=== PATIENT | female | born 1950 | race Caucasian/White ===

== ENCOUNTER 2024-11-29 14:39 | Inpatient (IN) | payer OTHER, MEDICARE ==
[2024-11-29] MEDS ORDERED: NA CHLORIDE 0.9% 500 ML ONE ×4 (15:15→16:00)
[2024-11-29 15:34] LABS: Influenza A Ag Negative; Influenza B Ag Negative; SARS-CoV-2 Antigen Rapid Res Negative (Negative)
[2024-11-29 15:37] LABS: Absolute Eosinophils 0.2 K/uL (0-0.5); Absolute Lymphocytes (CBC) 1.6 K/uL (0.7-4.9); Absolute Monocytes 1.4 K/uL (0.1-1.3); Absolute Neutrophil 10.7 K/uL (1.8-8.0); Basophils % 0.2 % (0-1.3); Eosinophils % 1.4 % (0-4.4); Hematocrit 32.7 % (36.0-45.0); Hemoglobin 10.6 g/dL (12.0-15.0); Lymphocytes % 11.3 % (15.3-44.8); MCH 27.7 pg (27.0-35.0); MCHC 32.2 g/dL (32.0-36.0); MCV 85.8 fL (80-100); MPV 7.2 fL (7.6-11.3); Neutrophils % 77.1 % (41.7-73.7); Platelets 256 thou/uL (152-406); RBC Red Blood Cell Count 3.81 M/uL (3.86-4.86); Red Cell Distribution Width 14.9 % (12.1-15.2)
[2024-11-29 15:48] LABS: PT Prothrombin Time 12.4 SECONDS (10.0-13.0); PTT, Activated Partial Thromb 28.1 SECONDS (24.3-36.9); Protime INR 1.09
[2024-11-29 15:56] LABS: ALT/SGPT 36 U/L (13-56); AST/SGOT 35 U/L (15-37); Albumin 2.8 g/dL (3.4-5.0); Albumin/Globulin Ratio 0.7 (1.1-1.8); Alkaline Phosphatase 130 U/L (45-117); BUN Blood Urea Nitrogen 16 mg/dL (7-18); Bicarbonate 23 mEq/L (21-32); Bilirubin Total 0.5 mg/dL (0.2-1.0); Globulin 3.9 g/dL (2.3-3.5); Glomerular Filtration Rate 36 ml/min (=/>90); Glucose Level 97 mg/dL (74-106); Magnesium 1.9 mg/dL (1.6-2.4); Protein, Total 6.7 g/dL (6.4-8.2); Sodium Level 131 mEq/L (136-145); Troponin High Sensitivity 9.9 pg/mL (<58.9)
[2024-11-29 15:57] LABS: Bilirubin Direct < 0.2 mg/dL (0-0.2); Bilirubin Indirect, Calculated 0.3 mg/dL (0.2-0.8)
[2024-11-29] MEDS ORDERED: NOREPINEPHRINE BITARTRATE/D5W 4 MG/250 ML BAG IV ONE (16:23)
[2024-11-29] MEDS ORDERED: NA CHLORIDE 0.9% 250 ML ONE (16:41)
[2024-11-29] MEDS ORDERED: CALCIUM GLUCONATE 1 GM IVPB 1 GM/50 ML BAG IV ONE (16:41)
[2024-11-29] MEDS ORDERED: AZITHROMYCIN 500 MG INJ IVPB ONE (16:41)
[2024-11-29] MEDS ORDERED: CEFTRIAXONE 1000 MG/VIAL ONE (16:41)
--- NOTE | 2024-11-29 16:45 | RAD REPORT ---
EXAM: CT Head Brain Wo Cont HISTORY: possible syncope, AMS COMPARISON: None TECHNIQUE: Multiple contiguous axial images were obtained for a CT of the brain without contrast. Sag ittal and coronal reformats were performed. One or more of the following dose reduction techniques were used: Automated exposure control, adjus tment of the mA and kV according to patient size, and iterative reconstruction. Unless otherwise specified, incidental findings do not require dedicated imaging follow-up. FINDINGS: No evidence of hydrocephalus, intracranial hemorrhage, or extra-axial fluid collection. Moderate brain atrophy with moderate periventricular and deep white matter chronic hypodensities, no nspecific, but suggestive of microvascular ischemic changes present. The calvarium is intact. The visualized paranasal sinuses and mastoid air cells are essentially clear . IMPRESSION: No evidence of acute intracranial abnormality.
--- NOTE | 2024-11-29 17:12 | RAD REPORT ---
EXAMINATION: ONE VIEW CHEST XR CLINICAL INDICATION: Female, 73 years old.,possible syncope TECHNIQUE: Frontal chest projection is submitted. Examination is limited by patient positioning and t echnique. COMPARISON: No prior exam. FINDINGS: The lungs are diffusely hyperlucent but grossly clear apart from mild right costophrenic angle blunti ng which could relate to atelectasis or trace effusion. No pneumothorax or sizable effusion. The heart is normal in size. Mediastinal contours are unremarkable. IMPRESSION: Mild right costophrenic angle blunting which could relate to atelectasis or trace effusion. Backgroun d chronic changes suggestive of COPD.
[2024-11-29 17:37] LABS: Specific Gravity 1.013 (1.005-1.030); Sqamous Epithelial None Seen /HPF (None Seen); Urine Bacteria <20 /HPF (<20); Urine Bilirubin NEGATIVE (Negative); Urine Blood 1+ (Negative); Urine Clarity Clear (Clear); Urine Color Yellow (Yellow); Urine Culture Reflex Order NOT NEEDED; Urine Glucose NEGATIVE (Negative); Urine Ketones NEGATIVE (Negative); Urine Microscopic Reflex YN ORDER UMIC; Urine Mucus Slight /HPF (None Seen); Urine Nitrite NEGATIVE (Negative); Urine Protein TRACE (Negative); Urine RBC <5 /HPF (None Seen); Urine Urobilinogen Normal (Normal); Urine WBC <5 /HPF (<5); Urine Yeast (Budding) Trace /HPF (None Seen)
--- NOTE | 2024-11-29 17:40 | RAD REPORT ---
EXAMINATION: US Abdomen Exam Limited CLINICAL HISTORY: [facility] Y fever, elevated alk phos Bed Name: 4 COMPARISON: None. TECHNIQUE: Limited upper abdominal grayscale and color flow sonographic images. FINDINGS: Gallbladder: Small gallstone near the neck. No significant wall thickening or pericholecystic fluid. Reportedly negative sonographic Church's sign. Bile ducts: No intrahepatic or extrahepatic biliary dilatation. Common bile duct measures 5 mm. Liver: Visualized portions of the liver demonstrate normal echogenicity with no suspicious findings. Fluid: No ascites. IMPRESSION: Gallstone near the neck. No sonographic findings to suggest acute cholecystitis.
--- NOTE | 2024-11-29 17:51 | ER ---
Nurse's Notes [facility] Name: Francisca Lemus Age: 73 yrs Sex: Female : 1950 Arrival Date: 11/29/2024 Time: 14:39 Bed 4 Private MD: Diagnosis: Hypotension, unspecified;Fever, unspecified;Suspected influenza Presentation: 11/29 15:37 Chief complaint: EMS states: they were toned out for generalized weakness and flu like kc6 symptoms that started today with subjective unwitnessed syncopal episode. unknown LOC. pt reports being 1mo s/p neck surgery. Coronavirus screen: At this time, the client does not indicate any symptoms associated with coronavirus-19. Ebola Screen: No symptoms or risks identified at this time. Initial Sepsis Screen: Does the patient meet any 2 criteria? Mean Arterial Pressure (MAP) < 65. Does the patient have a suspected source of infection? No. Patient's initial sepsis screen is negative. Risk Assessment: Do you want to hurt yourself or someone else? Patient reports no desire to harm self or others. Onset of symptoms was November 29, 2024. Care prior to arrival: Medication(s) given: Lactated Ringers 500 mL IV initiated. 20 GA, in the left forearm. 15:37 Method Of Arrival: EMS: [facility] kc6 15:37 Acuity: SACHIN 2 kc6 Historical: - Allergies: 15:35 No Known Allergies; hb - Home Meds: 15:35 TYLENOL [Active]; albuterol sulfate 90 mcg/actuation Inhl HFA Aerosol Inhaler 2 hb inhalations every 4 hours [Active]; Lipitor 10 mg Oral tablet every day at bedtime [Active]; budesonide 3 mg oral Capsule, Delayed and Extended Release 3 caps daily [Active]; cholecalciferol (vitamin D3) 25 mcg (1,000 unit) oral capsule daily [Active]; Lotrimin Topical daily [Active]; doxylamine succinate 25 mg oral tablet every day at bedtime [Active]; Estraderm TD daily [Active]; gabapentin 600 mg oral tablet 2 times per day [Active]; Mucinex 1,200 mg oral Tablet,Extended Release 12 hr daily [Active]; Swifton 5 MG Oral as needed [Active]; Singulair 10 mg Oral tablet every day at bedtime [Active]; Oncovite oral tablet daily [Active]; Corgard 20 MG Oral 2 times per day [Active]; Naproxen Oral [Active]; nortriptyline 10 mg Oral capsule 2 times per day [Active]; nystatin 100,000 unit/mL Oral suspension 5 mL 4 times per day [Active]; omeprazole 20 mg Oral capsule,delayed release (e.c.) daily [Active]; Imitrex 100 mg Oral tablet as directed on dose pack [Active]; Anoro Ellipta 62.5-25 mcg/actuation inhalation Blister, With Inhalation Device 1 inhalation daily [Active]; valsartan 80 mg oral tablet daily [Active]; - PMHx: 15:50 Hypercholesterolemia; Gastroesophageal reflux disease; Hypertensive disorder; Asthma; kc6 - Immunization history:: Adult Immunizations up to date. - Infectious Disease History:: Denies. - Family history:: not pertinent. - Social history:: Smoking status: Patient denies any tobacco usage or history of. Screenin:40 [facility] ED Fall Risk Assessment (Adult) History of falling in the last 3 months, kc6 including since admission Yes- physiologic fall (2 pts) Confusion or Disorientation No (0 pts) Intoxicated or Sedated No (0 pts) Impaired Gait No (0 pts) Mobility Assist Device Used No (0 pt) Altered Elimination No (0 pt) Score/Fall Risk Level 0 - 2 = Low Risk Oriented to surroundings, Maintained a safe environment, Educated pt \T\ family on fall prevention, incl call for assistance when getting out of bed. Abuse screen: Denies threats or abuse. Denies injuries from another. Nutritional screening: No deficits noted. Tuberculosis screening: No symptoms or risk factors identified. Assessment: 15:48 General: Appears in no apparent distress. comfortable, slender, well groomed, Behavior kc6 is calm, cooperative, appropriate for age, drowsy. Pain: Denies pain. Neuro: Level of Consciousness is awake, obeys commands, lethargic, Oriented to person, place, time, situation, Appropriate for age Reports dizziness, a syncopal episode weakness. Cardiovascular: Denies chest pain, shortness of breath, Heart tones S1 S2 present Capillary refill < 3 seconds Rhythm is sinus bradycardia with 1st degree heart block. Respiratory: Reports cough that is non-productive, Airway is patent Trachea midline Respiratory effort is even, unlabored, Respiratory pattern is regular, symmetrical. GI: No signs and/or symptoms were reported involving the gastrointestinal system. Last BM was November 29, 2024. Bowel sounds present X 4 quads. Abd is soft and non tender X 4 quads. Patient currently denies abdominal pain, diarrhea, nausea, vomiting. : No signs and/or symptoms were reported regarding the genitourinary system. EENT: Reports pain when swallowing. Derm: No signs and/or symptoms reported regarding the dermatologic system. Skin is intact, is fragile, is thin, with poor turgor Skin is dry, Skin is pale, Skin temperature is cool. Musculoskeletal: No signs and/or symptoms reported regarding the musculoskeletal system. Circulation, motion, and sensation intact. Range of motion: intact in all extremities. 16:48 Reassessment: Patient appears in no apparent distress at this time. No changes from kc6 previously documented assessment. Patient and/or family updated on plan of care and expected duration. Pain level reassessed. Patient is alert, oriented x 3, equal unlabored respirations, skin warm/dry/pink. 17:48 Reassessment: Patient appears in no apparent distress at this time. No changes from kc6 previously documented assessment. Patient and/or family updated on plan of care and expected duration. Pain level reassessed. Patient is alert, oriented x 3, equal unlabored respirations, skin warm/dry/pink. 18:45 Reassessment: Patient appears in no apparent distress at this time. Patient and/or hb family updated on plan of care and expected duration. Pain level reassessed. Patient is alert, oriented x 3, equal unlabored respirations, skin warm/dry/pink. 19:10 General: Appears comfortable, Behavior is calm, cooperative. Pain: Denies pain. Neuro: ha1 Level of Consciousness is awake, alert, obeys commands, forgetful . Oriented to person, place, time, situation. Cardiovascular: Capillary refill < 3 seconds Patient's skin is warm and dry. Respiratory: Airway is patent Respiratory effort is even, unlabored, Respiratory pattern is regular, symmetrical. GI: No signs and/or symptoms were reported involving the gastrointestinal system. Abdomen is round non-distended, Bowel sounds present X 4 quads. Abd is soft and non tender X 4 quads. Patient currently denies abdominal pain. : No signs and/or symptoms were reported regarding the genitourinary system. Derm: Skin is intact, is fragile, is thin, with poor turgor Skin is pale. Musculoskeletal: Circulation, motion, and sensation intact. 19:30 Reassessment: attempted to give report. ha1 20:00 Reassessment: attempted to give report. ha1 20:00 Reassessment: Patient and/or family updated on plan of care and expected duration. Pain ha1 level reassessed. Patient is alert, oriented x 3, equal unlabored respirations, skin warm/dry/pink. Patient states feeling better. Patient states symptoms have improved. 20:09 Reassessment: Patient and/or family updated on plan of care and expected duration. Pain ha1 level reassessed. 21:10 Reassessment: Patient and/or family updated on plan of care and expected duration. Pain ha1 level reassessed. Patient is alert, oriented x 3, equal unlabored respirations, skin warm/dry/pink. Patient denies pain at this time. Patient states feeling better. Patient states symptoms have improved. 21:16 Reassessment: report given to REY Patel. ha1 Vital Signs: 15:37 BP 71 / 39; Pulse 53; Resp 16 S; Pulse Ox 100% on R/A; kc6 15:41 BP 73 / 47; Weight 53.52 kg (R); Height 5 ft. 0 in. (R); kc6 15:51 BP 82 / 36; kc6 16:37 BP 89 / 61; Pulse 57; Resp 18 S; Pulse Ox 99% on R/A; kc6 16:38 BP 100 / 50; kc6 16:45 BP 95 / 58; Pulse 58; hb 16:45 BP 99 / 65; rn 16:52 BP 95 / 58; Pulse 60; rn 17:07 BP 113 / 67; Pulse 60; Resp 15 S; Pulse Ox 100% on R/A; kc6 17:14 BP 116 / 54; rn 17:15 BP 127 / 69; Pulse 62; hb 17:30 BP 115 / 49; Pulse 60; hb 17:45 BP 116 / 53; Pulse 62; hb 18:00 BP 112 / 60; Pulse 61; Resp 15; Pulse Ox 98% on R/A; hb 18:02 BP 112 / 60; Pulse 66; Resp 17 S; Pulse Ox 100% on R/A; kc6 18:15 BP 124 / 57; Pulse 61; hb 18:30 BP 121 / 55; Pulse 57; hb 18:52 BP 112 / 61; Pulse 64; Resp 14; Pulse Ox 100% on R/A; hb 19:16 BP 127 / 64; Pulse 64; Resp 17 S; Pulse Ox 97% on R/A; ha1 19:30 BP 127 / 81; Pulse 67; Resp 17 S; Pulse Ox 100% on R/A; ha1 19:45 BP 125 / 54; Pulse 66; Resp 17 S; Pulse Ox 97% on R/A; ha1 20:00 BP 124 / 56; Pulse 67; Resp 17 S; Pulse Ox 99% on R/A; ha1 20:15 BP 127 / 81; Pulse 67; Resp 17 S; Pulse Ox 99% on R/A; ha1 20:30 BP 133 / 57; Pulse 67; Resp 17 S; Pulse Ox 98% on R/A; ha1 20:45 BP 139 / 74; Pulse 66; Resp 18 S; Temp 98.7(O); Pulse Ox 100% on R/A; ha1 21:00 BP 127 / 61; Pulse 69; Resp 17 S; Pulse Ox 100% on R/A; ha1 21:15 BP 132 / 56; Pulse 67; Resp 17 S; Pulse Ox 100% on R/A; ha1 21:30 BP 124 / 71; Pulse 68; Resp 17 S; Pulse Ox 99% on R/A; ha1 21:45 BP 124 / 74; Pulse 67; Resp 18 S; Pulse Ox 100% on R/A; ha1 15:41 Body Mass Index 23.05 (53.52 kg, 152.4 cm) [facility] ED Course: 14:49 Patient arrived in ED. bd 14:49 Yo Stubbs MD is Attending Physician. rn 15:00 CT Head Brain wo Cont In Process Unspecified. EDMS 15:37 Deb Sanchez, REY is Primary Nurse. kc6 15:39 Triage completed. kc6 15:39 Arm band placed on. kc6 15:40 Patient has correct armband on for positive identification. Placed in gown. Bed in low kc6 position. Call light in reach. Side rails up X2. Adult w/ patient. information technology coordinator on. Pulse ox on. NIBP on. Door closed. Noise minimized. Lights dimmed. Warm blanket given. Pillow given. Verbal reassurance given. 15:40 Maintain EMS IV. Dressing intact. Good blood return noted. Site clean \T\ dry. Gauge \T\ mis 6 site: 20G LFA. Flushed with 10 mL NS. Inserted saline lock: 22 gauge in right antecubital area, using aseptic technique. Blood collected. Flushed with 10 mL NS. Patient maintains SpO2 saturation greater than 95% on room air. 15:44 Chest Single View XRAY In Process Unspecified. EDMS 16:13 Repositioned patient. Cleaned of incontinence. Linen changed. kc6 16:21 Assisted provider with central line placement. Set up central line tray. Triple lumen kc6 line placed in right femoral. Line placed by Yo Stubbs MD Placement verified by blood return, Dressed with 4X4s, Tape, Tegaderm, Blood was collected. Patient tolerated well. Before procedure, did Practitioner(s) obtain informed consent? Yes. Patient \T\ family education about procedure, CLABSI prevention and S/S of infection? Yes. Time-out/Briefing performed prior to start of procedure? Yes. Was handwashing/sanitizing done immediately prior to procedure? Yes. Was patient positioned to in a way to prevent air embolism? Yes. Was procedure site sterilized? Yes, with chlorhexidine. Was the site allowed to dry? Yes. Was local anesthetic and/or sedation utilized? Yes. During the procedure, did the Practitioner(s) maintain a sterile field? Yes. Were unused ports clamped during insertion? Yes. Was a 2nd qualified MD obtained after 3 unsuccessful insertion attempts? No. Was blood aspirated from each lumen? Yes. After the procedure, did the Practitioner(s) clean the site and apply a sterile dressing? Yes. 17:03 US Abdomen Limited In Process Unspecified. EDMS 17:25 Holden cath inserted, using sterile technique, 16 Fr., by ut, balloon inflated, to kc6 gravity drainage, clamped. urine specimen collected. returned clear yellow urine. Patient tolerated well. 17:49 Sundeep Bates MD is Hospitalizing Provider. rn 21:45 Provided Education on: need for admit . ha1 21:45 Patient admitted, IV remains in place. ha1 Administered Medications: 15:16 Not Given (Duplicate Order): ns 0.9% 500 ml 500 ml IV at 1 bolus once; to be given as a rn bolus over 30 minutes 15:30 Drug: NS 0.9% IV 1000 ml IV at 1000 ml once; to be given as a bolus over 60 minutes kc6 Route: IV; Rate: 1000 ml; Site: left forearm; 17:07 Follow up: Response: No adverse reaction; Blood pressure is unchanged; IV Status: kc6 Completed infusion; IV Intake: 1000ml 15:52 Drug: NS 0.9% IV 500 ml 500 ml IV at 1 bolus once; to be given as a bolus over 30 kc6 minutes Volume: 500 ml; Route: IV; Rate: 1 bolus; Site: left forearm; 17:07 Follow up: Response: No adverse reaction; Blood pressure is unchanged; IV Status: kc6 Completed infusion; IV Intake: 500ml 15:53 Drug: NS 0.9% IV (30 ml/kg) 30 ml/kg IV at bolus once; Sepsis Protocol; to be given as kc6 a bolus, subtract 1L given Route: IV; Rate: bolus; Site: left forearm; 17:08 Follow up: Response: No adverse reaction; Blood pressure is unchanged; IV Status: kc6 Completed infusion; IV Intake: 1500ml 16:34 Drug: Norepinephrine IV 0.1 mcg/kg/min IV at calculated rate Per protocol; (Standard kc6 concentration 4 mg / 250 mL D5W); Recommended max rate 3 mcg/kg/min; Titrate 0.05 mcg/kg/min as often as every 5 minutes to achieve goal (see titration policy); Goal parameter MAP greater than 65 mmHg. Route: IV; Rate: calculated rate; Site: right femoral; 18:56 Follow up: Response: No adverse reaction; Blood pressure is elevated; Rate change 5 kc6 mcg/min; IV Status: Infusion continued upon admission; IV Intake: 250ml 16:55 Drug: Rocephin IV 1 grams IV at calculated rate once; Given slow IV push per pharmacy kc6 instructions Route: IV; Rate: calculated rate; Site: left forearm; 17:08 Follow up: Response: No adverse reaction; IV Status: Completed infusion; IV Intake: [id number] 16:55 Drug: Zithromax IVPB 500 mg IVPB once over 1 hrs; mix in 250 mL NS Route: IVPB; Infused kc6 Over: 1 hrs; Site: right femoral; 18:01 Follow up: Response: No adverse reaction; IV Status: Completed infusion; IV Intake: kc6 250ml 16:55 Drug: Calcium Gluconate IVPB 1 grams IVPB once over 60 mins; (mix in NS 100 mL) Route: kc6 IVPB; Infused Over: 60 mins; Site: right femoral; 18:01 Follow up: Response: No adverse reaction; IV Status: Completed infusion; IV Intake: kc6 100ml 18:11 Drug: Oseltamivir PO 75 mg PO once Route: PO; kc6 18:56 Follow up: Response: No adverse reaction kc6 Medication: 19:44 VIS not applicable for this client. ha1 Intake: 17:07 IV: 1000ml; Total: 1000ml. kc6 17:07 IV: 500ml; Total: 1500ml. kc6 17:08 IV: 1500ml; Total: 3000ml. kc6 17:08 IV: 10ml; Total: 3010ml. kc6 18:01 IV: 100ml; Total: 3110ml. kc6 18:01 IV: 250ml; Total: 3360ml. kc6 18:56 IV: 250ml; Total: 3610ml. kc6 Outcome: 17:50 Decision to Hospitalize by Provider. rn 21:45 Admitted to ICU accompanied by nurse, via stretcher, room 7, with chart, [facility] 21:45 Condition: stable 21:45 Instructed on the need for admit, Demonstrated understanding of instructions, 22:16 Patient left the ED. ha1 Signatures: Dispatcher [employer] EDMS April Mejias Roman, MD MD rn Baxter, Heather, RN RN hb Ayala, Heidy, RN RN [facility] Deb Sanchez RN RN kc6 Corrections: (The following items were deleted from the chart) 15:40 15:39 PMHx: Chronic obstructive lung disease; kc6 kc6 15:40 15:39 PMHx: Gastroesophageal reflux disease; kc6 kc6 15:40 15:39 PMHx: Hypertensive disorder; kc6 kc6 15:41 15:37 Chief complaint: EMS states: they were toned out for generalized weakness and flu kc6 like symptoms that started today. pt reports being 1mo s/p neck surgery. kc6 15:52 15:41 BP 73 / 47; kc6 kc6
--- NOTE | 2024-11-29 17:51 | EDPHYS ---
Physician Documentation [facility] Name: Francisca Lemus Age: 73 yrs Sex: Female : 1950 Arrival Date: 11/29/2024 Time: 14:39 Bed 4 Private MD: ED Physician Yo Stubbs HPI: 11/29 15:07 This 73 yrs old Female presents to ER via Unassigned with complaints of not feeling rn well. 15:07 EMS reports called to patient's residence for not feeling well and flulike symptoms. rn Apparently multiple contacts lately with flulike symptoms and other people for patient. Patient reports 2 days of feeling generalized weakness and malaise, cough. Patient was found sitting on toilet, large bowel movement found in toilet that was nonbloody and not diarrhea. Patient was minimally responsive but awake. No trauma or fall. Unsure if patient had a syncopal episode or not. Patient had taken her hydrocodone and had exhibited slow breathing but not slow enough to warrant Narcan per EMS. Patient more alert already since picking her up without intervention other than fluids.. Onset: The symptoms/episode began/occurred yesterday. Severity of symptoms: At their worst the symptoms were moderate in the emergency department the symptoms have improved. Historical: - Allergies: 15:35 No Known Allergies; hb - Home Meds: 15:35 TYLENOL [Active]; albuterol sulfate 90 mcg/actuation Inhl HFA Aerosol Inhaler 2 hb inhalations every 4 hours [Active]; Lipitor 10 mg Oral tablet every day at bedtime [Active]; budesonide 3 mg oral Capsule, Delayed and Extended Release 3 caps daily [Active]; cholecalciferol (vitamin D3) 25 mcg (1,000 unit) oral capsule daily [Active]; Lotrimin Topical daily [Active]; doxylamine succinate 25 mg oral tablet every day at bedtime [Active]; Estraderm TD daily [Active]; gabapentin 600 mg oral tablet 2 times per day [Active]; Mucinex 1,200 mg oral Tablet,Extended Release 12 hr daily [Active]; [place] 5 MG Oral as needed [Active]; Singulair 10 mg Oral tablet every day at bedtime [Active]; Oncovite oral tablet daily [Active]; Corgard 20 MG Oral 2 times per day [Active]; Naproxen Oral [Active]; nortriptyline 10 mg Oral capsule 2 times per day [Active]; nystatin 100,000 unit/mL Oral suspension 5 mL 4 times per day [Active]; omeprazole 20 mg Oral capsule,delayed release (e.c.) daily [Active]; Imitrex 100 mg Oral tablet as directed on dose pack [Active]; Anoro Ellipta 62.5-25 mcg/actuation inhalation Blister, With Inhalation Device 1 inhalation daily [Active]; valsartan 80 mg oral tablet daily [Active]; - PMHx: 15:50 Hypercholesterolemia; Gastroesophageal reflux disease; Hypertensive disorder; Asthma; kc6 - Immunization history:: Adult Immunizations up to date. - Infectious Disease History:: Denies. - Family history:: not pertinent. - Social history:: Smoking status: Patient denies any tobacco usage or history of. ROS: 15:07 Constitutional: Negative for fever, chills, and weight loss, Neck: Negative for injury, rn pain, and swelling, Cardiovascular: Negative for chest pain, palpitations, and edema, Respiratory: Positive for cough, negative for shortness of breath Abdomen/GI: Positive for decreased appetite but no focal abdominal pain. No vomiting or diarrhea Back: Negative for injury and pain, : Negative for injury, bleeding, discharge, and swelling, MS/Extremity: Negative for injury and deformity, Skin: Negative for injury, rash, and discoloration, Neuro: Positive for generalized weakness Exam: 15:07 Constitutional: This is a well developed, well nourished patient who is somnolent but rn awakens to voice and tactile stimulation Head/Face: Normocephalic, atraumatic. ENT: Dry mucous membranes Cardiovascular: Bradycardic, regular. No pulse deficits Respiratory: No increased work of breathing, no retractions or nasal flaring. Abdomen/GI: Soft, non-tender, with normal bowel sounds. No distension or tympany. No guarding or rebound. No evidence of tenderness throughout. MS/ Extremity: Pulses equal, no cyanosis. Neurovascular intact. Full, normal range of motion. Equal circumference. Neuro: Somnolent but awakens to voice and able to hold entire conversation, GCS 15, oriented to person, place, and situation. Cranial nerves II-XII grossly intact. Motor strength 4/5 in all extremities. Sensory grossly intact. 15:56 ECG was reviewed by the Attending Physician. rn Vital Signs: 15:37 BP 71 / 39; Pulse 53; Resp 16 S; Pulse Ox 100% on R/A; kc6 15:41 BP 73 / 47; Weight 53.52 kg (R); Height 5 ft. 0 in. (R); kc6 15:51 BP 82 / 36; kc6 16:37 BP 89 / 61; Pulse 57; Resp 18 S; Pulse Ox 99% on R/A; kc6 16:38 BP 100 / 50; kc6 16:45 BP 95 / 58; Pulse 58; hb 16:45 BP 99 / 65; rn 16:52 BP 95 / 58; Pulse 60; rn 17:07 BP 113 / 67; Pulse 60; Resp 15 S; Pulse Ox 100% on R/A; kc6 17:14 BP 116 / 54; rn 17:15 BP 127 / 69; Pulse 62; hb 17:30 BP 115 / 49; Pulse 60; hb 17:45 BP 116 / 53; Pulse 62; hb 18:00 BP 112 / 60; Pulse 61; Resp 15; Pulse Ox 98% on R/A; hb 18:02 BP 112 / 60; Pulse 66; Resp 17 S; Pulse Ox 100% on R/A; kc6 18:15 BP 124 / 57; Pulse 61; hb 18:30 BP 121 / 55; Pulse 57; hb 18:52 BP 112 / 61; Pulse 64; Resp 14; Pulse Ox 100% on R/A; hb 19:16 BP 127 / 64; Pulse 64; Resp 17 S; Pulse Ox 97% on R/A; ha1 19:30 BP 127 / 81; Pulse 67; Resp 17 S; Pulse Ox 100% on R/A; ha1 19:45 BP 125 / 54; Pulse 66; Resp 17 S; Pulse Ox 97% on R/A; ha1 20:00 BP 124 / 56; Pulse 67; Resp 17 S; Pulse Ox 99% on R/A; ha1 20:15 BP 127 / 81; Pulse 67; Resp 17 S; Pulse Ox 99% on R/A; ha1 20:30 BP 133 / 57; Pulse 67; Resp 17 S; Pulse Ox 98% on R/A; ha1 20:45 BP 139 / 74; Pulse 66; Resp 18 S; Temp 98.7(O); Pulse Ox 100% on R/A; ha1 21:00 BP 127 / 61; Pulse 69; Resp 17 S; Pulse Ox 100% on R/A; ha1 21:15 BP 132 / 56; Pulse 67; Resp 17 S; Pulse Ox 100% on R/A; ha1 21:30 BP 124 / 71; Pulse 68; Resp 17 S; Pulse Ox 99% on R/A; ha1 21:45 BP 124 / 74; Pulse 67; Resp 18 S; Pulse Ox 100% on R/A; ha1 15:41 Body Mass Index 23.05 (53.52 kg, 152.4 cm) kc6 Procedures: 16:32 Central Line: the site was prepped with Betadine, in sterile fashion, a triple lumen rn catheter was inserted, in the right femoral vein, in 1 attempts. placement was verified, by blood return, the site was dressed with Tegaderm, using sterile technique, the patient tolerated the procedure, well. MDM: 14:49 Medical Screening Exam initiated rn 16:26 ED course: Patient with persistent hypotension despite 30 mL/kg bolus. No source of rn infection identified at this time. Central line placed and Levophed started as a pressor for hypotension. Sepsis reevaluation complete.. 16:53 ED course: Blood pressure has improved on Levophed, MAP now 68. Sepsis reevaluation rn complete.. 17:48 Differential Diagnosis altered mental status, sepsis, flu. Data reviewed: vital signs, rn nurses notes, lab test result(s), radiologic studies, plain films, ultrasound, and as a result, I will admit patient. Consideration of Admission/Observation Patient was admitted/placed on observation. Escalation of care including admission/observation considered. Care significantly affected by the following chronic conditions: Hypertension, Chronic Obstructive Pulmonary Disease. Counseling: I had a detailed discussion with the patient and/or guardian regarding the historical points, exam findings, and any diagnostic results supporting the discharge/admit diagnosis, lab results, radiology results, the need for further work-up and treatment in the hospital. Response to treatment: the patient's symptoms have markedly improved after treatment, and as a result, I will admit patient. ED course: Family member here states multiple sick contacts, her tested positive for flu a this weekend and they have been traveling with patient in close proximity. I will treat as suspected influenza with Tamiflu and continue antibiotics for now. Blood pressure currently 116/54 and feels much better.. 11/29 14:50 Order name: COVID-19 Ag + Flu A+B Ag; Complete Time: 16:27 rn 11/29 14:50 Order name: Basic Metabolic Panel; Complete Time: 16:27 rn 11/29 14:50 Order name: CBC with Diff; Complete Time: 16:27 rn 11/29 14:50 Order name: Hepatic Function; Complete Time: 16:27 rn 11/29 14:50 Order name: Magnesium; Complete Time: 16:27 rn 11/29 14:50 Order name: Protime (+inr); Complete Time: 16:27 rn 11/29 14:50 Order name: Ptt, Activated; Complete Time: 16:27 rn 11/29 14:50 Order name: Troponin High Sensitivity; Complete Time: 16:27 rn 11/29 14:50 Order name: Urinalysis w/ reflexes; Complete Time: 17:38 rn 11/29 15:15 Order name: Blood Culture Adult (2) rn 11/29 15:15 Order name: Lactate w/ 2H reflex if indic.; Complete Time: 16:27 rn 11/29 18:38 Order name: Urinalysis w/ reflexes EDMS 11/29 18:40 Order name: Urinalysis w/ reflexes EDMS 11/29 18:40 Order name: CBC with Automated Diff EDMS 11/29 18:40 Order name: CBC with Automated Diff EDMS 11/29 18:40 Order name: Comprehensive Metabolic Panel EDMS 11/29 18:40 Order name: Comprehensive Metabolic Panel EDMS 11/29 18:40 Order name: Magnesium EDMS 11/29 18:40 Order name: Magnesium EDMS 11/29 18:40 Order name: Phosphorus EDMS 11/29 18:40 Order name: Phosphorus EDMS 11/29 14:50 Order name: CT Head Brain wo Cont; Complete Time: 16:52 rn 11/29 14:50 Order name: Chest Single View XRAY; Complete Time: 17:29 rn 11/29 16:41 Order name: US Abdomen Limited; Complete Time: 17:41 rn 11/29 14:50 Order name: Cardiac monitoring; Complete Time: 15:14 rn 11/29 14:50 Order name: EKG - Nurse/Tech; Complete Time: 15:31 rn 11/29 14:50 Order name: IV Saline Lock; Complete Time: 15: rn 11/29 14:50 Order name: Labs collected and sent; Complete Time: 15: rn 11/29 14:50 Order name: NPO; Complete Time: 15: rn 11/29 14:50 Order name: O2 Per Protocol; Complete Time: 15: rn 11/29 14:50 Order name: O2 Sat Monitoring; Complete Time: 15: rn 11/29 15:15 Order name: Accucheck; Complete Time: 15: rn 11/29 15:15 Order name: IV Saline Lock - Large Bore; Complete Time: 15: rn 11/29 15:15 Order name: Vital Signs; Complete Time: 15: rn EC:56 Rate is 50 beats/min. Rhythm is regular. AR interval is prolonged. QRS interval is rn normal. No Q waves. T waves are Normal. No ST changes noted. Clinical impression: Sinus bradycardia. Interpreted by me. Reviewed by me. Administered Medications: 15:16 Not Given (Duplicate Order): ns 0.9% 500 ml 500 ml IV at 1 bolus once; to be given as a rn bolus over 30 minutes 15:30 Drug: NS 0.9% IV 1000 ml IV at 1000 ml once; to be given as a bolus over 60 minutes kc6 Route: IV; Rate: 1000 ml; Site: left forearm; 17:07 Follow up: Response: No adverse reaction; Blood pressure is unchanged; IV Status: kc6 Completed infusion; IV Intake: 1000ml 15:52 Drug: NS 0.9% IV 500 ml 500 ml IV at 1 bolus once; to be given as a bolus over 30 kc6 minutes Volume: 500 ml; Route: IV; Rate: 1 bolus; Site: left forearm; 17:07 Follow up: Response: No adverse reaction; Blood pressure is unchanged; IV Status: kc6 Completed infusion; IV Intake: 500ml 15:53 Drug: NS 0.9% IV (30 ml/kg) 30 ml/kg IV at bolus once; Sepsis Protocol; to be given as kc6 a bolus, subtract 1L given Route: IV; Rate: bolus; Site: left forearm; 17:08 Follow up: Response: No adverse reaction; Blood pressure is unchanged; IV Status: kc6 Completed infusion; IV Intake: 1500ml 16:34 Drug: Norepinephrine IV 0.1 mcg/kg/min IV at calculated rate Per protocol; (Standard kc6 concentration 4 mg / 250 mL D5W); Recommended max rate 3 mcg/kg/min; Titrate 0.05 mcg/kg/min as often as every 5 minutes to achieve goal (see titration policy); Goal parameter MAP greater than 65 mmHg. Route: IV; Rate: calculated rate; Site: right femoral; 18:56 Follow up: Response: No adverse reaction; Blood pressure is elevated; Rate change 5 kc6 mcg/min; IV Status: Infusion continued upon admission; IV Intake: 250ml 16:55 Drug: Rocephin IV 1 grams IV at calculated rate once; Given slow IV push per pharmacy kc6 instructions Route: IV; Rate: calculated rate; Site: left forearm; 17:08 Follow up: Response: No adverse reaction; IV Status: Completed infusion; IV Intake: [id number] 16:55 Drug: Zithromax IVPB 500 mg IVPB once over 1 hrs; mix in 250 mL NS Route: IVPB; Infused kc6 Over: 1 hrs; Site: right femoral; 18:01 Follow up: Response: No adverse reaction; IV Status: Completed infusion; IV Intake: kc6 250ml 16:55 Drug: Calcium Gluconate IVPB 1 grams IVPB once over 60 mins; (mix in NS 100 mL) Route: kc6 IVPB; Infused Over: 60 mins; Site: right femoral; 18:01 Follow up: Response: No adverse reaction; IV Status: Completed infusion; IV Intake: kc6 100ml 18:11 Drug: Oseltamivir PO 75 mg PO once Route: PO; kc6 18:56 Follow up: Response: No adverse reaction kc6 Disposition Summary: 11/29/24 17:50 Hospitalization Ordered Notes: Hospitalization Status: Inpatient Admission rn Provider: Sundeep Bates rn Location: Intensive Care Unit rn Condition: Fair rn Problem: new rn Symptoms: have improved rn Bed/Room Type: Standard rn Room Assignment: 7-(11/29/24 19:23) cg Diagnosis - Hypotension, unspecified rn - Fever, unspecified rn - Suspected influenza rn Forms: - Medication Reconciliation Form rn - SBAR form rn - Leadership Thank You Letter rn pacu time excluding procedures: 17:49 Critical care time: Bedside Care: 35 minutes. Total time: 35 minutes rn Signatures: Dispatcher [facility] EDMS Yo Stubbs MD MD rn Garcia, Cindy, RN RN cg Alvina Nunn, Deb Galdamez RN RN RN kc6 Corrections: (The following items were deleted from the chart) 14:51 14:51 COVID-19 Ag + Flu A+B Ag+I.LAB.BRZ ordered. EDMS EDMS 14:51 14:51 BASIC METABOLIC PANEL+C.LAB.BRZ ordered. EDMS EDMS 14:51 14:51 CBC+H.LAB.BRZ ordered. EDMS EDMS 14:51 14:51 HEPATIC FUNCTION+C.LAB.BRZ ordered. EDMS EDMS 14:51 14:51 MAGNESIUM+C.LAB.BRZ ordered. EDMS EDMS 14:51 14:51 PROTIME (+INR)+COAG.LAB.BRZ ordered. EDMS EDMS 14:51 14:51 PTT, ACTIVATED+COAG.LAB.BRZ ordered. EDMS EDMS 14:51 14:51 Troponin High Sensitivity+C.LAB.BRZ ordered. EDMS EDMS 14:51 14:51 Urinalysis+U.LAB.BRZ ordered. EDMS EDMS 14:51 14:51 Head Brain Wo Cont+CT.RAD.BRZ ordered. EDMS EDMS 14:51 14:51 Chest Single View+RAD.RAD.BRZ ordered. EDMS EDMS 15:40 15:39 PMHx: Chronic obstructive lung disease; kc6 kc6 15:40 15:39 PMHx: Gastroesophageal reflux disease; kc6 kc6 15:40 15:39 PMHx: Hypertensive disorder; kc6 kc6 16:41 16:41 Abdomen Limited+US.RAD.BRZ ordered. EDMS EDMS 19:23 17:50 rn cg
[2024-11-29] MEDS ORDERED: OSELTAMIVIR 75 MG CAP PO ONE (18:04)
--- NOTE | 2024-11-29 18:34 | P.HP ---
Certification for Inpatient Patient admitted to: Inpatient With expected LOS: >2 Midnights Practitioner: I am a practitioner with admitting privileges, knowledge of patient current condition, hospital course, and medical plan of care. Services: Services provided to patient in accordance with Admission requirements found in Title 42 Section 412.3 of the Code of Federal Regulations Patient History Date of Service: 11/29/24 Reason for admission: generalized weakness History of Present Illness: 73 yrs old Female with past medical history of hypertension, hyperlipidemia, GERD, Asthma who came to ER with complaints of not feeling well. She has been having not feeling well and flulike symptoms. Patient is a historian hence most of the history is obtained from chart review and also talking to the ER physician and family member at the bedside . Apparently multiple contacts lately with flulike symptoms and other people for patient. Patient reports 2 days of feeling generalized weakness and malaise, cough.Patient was minimally responsive but awake. No trauma or fall. Patient was assessed in the ER and was admitted for further management . . Lidia ent was found to be hypotensive and was started on Levophed and was admitted to the ICU Home medications list reviewed: Yes - Past Medical/Surgical History Past Medical History: Reviewed- Non-Contributory -: Hypertension, hyperlipidemia, GERD, asthma Past Surgical History: Reviewed- Non-Contributory - Social History Smoking Status: Never smoker Review of Systems is unable to be obtained Physical Examination - Vital Signs Temperature: 97.8 F Blood Pressure: 102/60 Pulse: 76 Respirations: 18 Pulse Ox (%): 94 - Physical Exam General: Alert, Mild distress HEENT: Atraumatic, Normocephalic Neck: Supple Respiratory: Clear to auscultation bilaterally, Normal air movement, Crackles/rales Cardiovascular: Regular rate/rhythm, Normal S1 S2 Capillary refill: <2 Seconds Gastrointestinal: Soft and benign, W/out hepatosplenomegaly Musculoskeletal: No clubbing, No swelling Integumentary: No rashes Neurological: Normal strength at 5/5 x4 extr, Cranial nerves 3-12 intact, Other (Alert , non focal ) Lymphatics: No axilla or inguinal lymphadenopathy - Studies Laboratory Data (last 24 hrs) 11/29/24 11/29/24 11/29/24 15:26 15:26 15:26 WBC 13.80 H Hgb 10.6 L Hct 32.7 L Plt Count 256 PT 12.4 INR 1.09 APTT 28.1 Sodium 131 L Potassium 4.0 BUN 16 Creatinine 1.53 H Glucose 97 Magnesium 1.9 Total Bilirubin 0.5 AST 35 ALT 36 Alkaline Phosphatase 130 H Assessment and Plan - Plan Acute encephalopathy metabolic Better More awake alert CT head negative for any acute changes Severe sepsis Septic shock IV hydration IV antibiotic Started on Levophed Admit to ICU Will try to wean down off Levophed Pneumonia X-ray findings noted Started on IV antibiotic Obtain cultures Bronchodilators as needed Leukocytosis anemia Hyponatremia acute kidney injury IV hydration Renal parameters monitored Monitor CBC in a.m. H&H monitored Gall Stone without signs of cholecystitis Ultrasound findings noted Denies any pain Outpatient follow-up with surgery GI/DVT prophylaxis Advanced directive full code Discharge Plan: Home Plan to discharge in: 48 Hours - Advance Directives Does patient have a Living Will: No Does patient have a Durable POA for Healthcare: No - Code Status/Comfort Care Code Status: Full Code Time Spent Managing Pts Care (In Minutes): 48
[2024-11-29] MEDS ORDERED: ONDANSETRON 4 MG/2 ML VIAL IV PRN (18:36)
[2024-11-30 05:52] LABS: Absolute Lymphocytes (CBC) 1.7 K/uL (0.7-4.9); Absolute Monocytes 0.9 K/uL (0.1-1.3); Basophils % 0.1 % (0-1.3); Eosinophils % 0.4 % (0-4.4); Hematocrit 30.2 % (36.0-45.0); Hemoglobin 9.8 g/dL (12.0-15.0); Lymphocytes % 14.2 % (15.3-44.8); MCH 27.9 pg (27.0-35.0); MCHC 32.5 g/dL (32.0-36.0); MCV 85.8 fL (80-100); Monocytes % 8.1 % (3.3-12.3); Neutrophils % 77.2 % (41.7-73.7); Platelets 269 thou/uL (152-406); RBC Red Blood Cell Count 3.52 M/uL (3.86-4.86); Red Cell Distribution Width 15.2 % (12.1-15.2)
[2024-11-30 06:02] LABS: Albumin 2.5 g/dL (3.4-5.0); Albumin/Globulin Ratio 0.6 (1.1-1.8); Anion Gap 12.3 mEq/L (5.0-15.0); Bilirubin Total 0.2 mg/dL (0.2-1.0); Magnesium 1.8 mg/dL (1.6-2.4); Phosphorus 3.1 mg/dL (2.5-4.9); Potassium 4.3 mEq/L (3.5-5.1); Protein, Total 6.5 g/dL (6.4-8.2)
--- NOTE | 2024-11-30 06:57 | P.PN ---
Date of Service: 11/30/24 Subjective: Doesn't feel much improvement, but doesn't feel worse reports flu-like symptoms, weakness for a few days. +multiple sick contacts recently recently prescribed nyastatin [id number] ~2 weeks ago for oral thrush BP improved, off levo since last night afebrile ROS: 10 point ROS as noted above, otherwise negative Physical Exam: GEN: Alert, oriented, fatigued appearing CV: Regular rate and rhythm, no edema HEENT: erythematous posterior pharynx, no clear plaques Pulm: Nonlabored respirations on 3L NC ABD: soft, nontender, nondistended Neuro: Normal speech, normal affect Holden, central line placed in ED. Problem List: Septic Shock secondary to pneumonia Acute metabolic encephalopathy Hypotension DANNA, resolved Cholelithiasis s/p recent neck surgery (1 month ago) Hx of asthma Septic Shock secondary to pneumonia Acute metabolic encephalopathy Hypotension Recent oral thrush (2 weeks ago) presents with generalized weakness, flulike symptoms, cough, +possible subje ctive unwitnessed syncopal episode. Multiple sick contacts with flulike symptoms. Covid/Flu negative. Recent oral thrush per patient. She reports being prescribed augmentin, nyastatin [id number], prednisone ~2 weeks ago (11/16) Patient minimally responsive in ED. BP initially 71/39 in ED. BP improved with IVF, levophed drip Off levo since last night. CXR (11/29): Mild right costophrenic angle blunting which could relate to atelectasis or trace effusion. COPD CT head negative for acute findings continue empiric rocephin / azithromycin (11/29-) Follow blood cultures. UA with trace yeast. denies UTI symptoms wean oxygen as tolerated. duonebs DANNA, resolved, secondary to dehydration creatinine 1.53 on admission. DANNA quickly resolved with IV hydration. Cholelithiasis Abdominal u/s (11/29): gallstone near the neck. No sonographic findings to suggest acute cholecystitis VTE: Lovenox Code: Full Dispo: Home, ~2 days pending improvement, off oxygen. BP remains stable Time Spent Managing Pts Care (In Minutes): 55
[2024-11-30] MEDS: IPRATROPIUM BROM 0.5MG/2.5ML NEB PRN (08:56)
[2024-11-30] MEDS: ACETAMINOPHEN 325 MG TABLET PO PRN (08:56)
[2024-11-30] MEDS: ALBUTEROL 2.5 MG/3 ML NEB SOL NEB PRN (08:56)
[2024-11-30] MEDS: NYSTATIN 500,000 UNIT/5 ML UDC PO SCH (08:59)
[2024-11-30] MEDS: ENOXAPARIN 40 MG/0.4 ML SQ SCH (08:59)
[2024-11-30] MEDS: AZITHROMYCIN IV 500 MG in NA CHLORIDE 0.9% 250 ML IVPB SCH (09:00)
[2024-11-30] MEDS: CEFTRIAXONE 1,000 MG in NA CHLORIDE 0.9% 50 ML IVPB SCH (09:00)
[2024-11-30] MEDS: SUMATRIPTAN SUCCI 50 MG TAB PO PRN (12:23)
[2024-11-30] MEDS ORDERED: MAGIC MOUTHWASH 180 ML BTL PO PRN (17:41)
[2024-11-30] MEDS: nadoloL 40 MG TAB PO SCH (21:00)
[2024-11-30] MEDS: NORTRIPTYLINE HCL 10 MG CAP PO SCH (21:00)
[2024-11-30] MEDS: GABAPENTIN 300 MG CAP PO SCH (21:48)
[2024-11-30] MEDS: MAGNES/ALUMIN/SIMET 30ML UCUP PO SCH (22:00)
[2024-11-30] MEDS: LIDOCAINE VISCOUS 2% SOLN 15 ML UDC PO SCH (22:00)
[2024-11-30] MEDS ORDERED: LIDOCAINE VISCOUS 2% 10ML ORAL SOLN ONE (23:02)
[2024-11-30] MEDS: DIPHENHYDRAMINE 12.5MG/5ML LIQ PO SCH (23:07)
[2024-12-01] MEDS: PANTOPRAZOLE 40MG TABLET PO SCH (05:32)
[2024-12-01 05:38] VITALS: BMI 22.4
[2024-12-01 05:46] LABS: Absolute Eosinophils 0.1 K/uL (0-0.5); Absolute Lymphocytes (CBC) 2.3 K/uL (0.7-4.9); Absolute Monocytes 1.1 K/uL (0.1-1.3); Absolute Neutrophil 8.9 K/uL (1.8-8.0); Basophils % 0.2 % (0-1.3); Eosinophils % 0.8 % (0-4.4); Hematocrit 31.1 % (36.0-45.0); Hemoglobin 10.3 g/dL (12.0-15.0); Lymphocytes % 18.6 % (15.3-44.8); MCH 27.9 pg (27.0-35.0); MCHC 33.1 g/dL (32.0-36.0); MCV 84.5 fL (80-100); MPV 7.2 fL (7.6-11.3); Monocytes % 8.9 % (3.3-12.3); Neutrophils % 71.5 % (41.7-73.7); Platelets 249 thou/uL (152-406); RBC Red Blood Cell Count 3.68 M/uL (3.86-4.86); Red Cell Distribution Width 15.2 % (12.1-15.2)
[2024-12-01 06:01] LABS: Albumin 2.3 g/dL (3.4-5.0); Albumin/Globulin Ratio 0.5 (1.1-1.8); Anion Gap 9.4 mEq/L (5.0-15.0); Bilirubin Total 0.3 mg/dL (0.2-1.0); Globulin 4.5 g/dL (2.3-3.5); Magnesium 1.6 mg/dL (1.6-2.4); Potassium 3.4 mEq/L (3.5-5.1); Protein, Total 6.8 g/dL (6.4-8.2)
[2024-12-01] MEDS ORDERED: KCL 20 MEQ/100 mL IVPB 20 MEQ/100 ML BAG IV SCH (07:00)
[2024-12-01] MEDS: MONTELUKAST 10 MG TAB PO SCH (08:00)
[2024-12-01] MEDS: VALSARTAN 80 MG TAB PO SCH (08:00)
[2024-12-01] MEDS: POTASSIUM PHOS IN 0.9 % NACL 15 MMOL/250 ML BAG IV ONE (08:01)
[2024-12-01] MEDS: MAGNESIUM SULFATE 1 gm IVPB 1 GM/100 ML BAG IV ONE (08:01)
[2024-12-01] MEDS: BUDESONIDE, MICRONIZED 3 MG CAP PO SCH (08:18)
[2024-12-01] MEDS: VITAMIN D 1000 UNIT TAB PO SCH (08:26)
--- NOTE | 2024-12-01 14:48 | P.PN ---
Date of Service: 12/01/24 Subjective: feeling better still short of breath / coughing sore throat about the same ROS: 10 point ROS as noted above, otherwise negative Physical Exam: GEN: Alert, oriented, fatigued appearing CV: Regular rate and rhythm, no edema HEENT: erythematous posterior pharynx, no clear plaques Pulm: Nonlabored respirations on 2L NC ABD: soft, nontender, nondistended Neuro: Normal speech, normal affect Morales, central line placed in ED. Problem List: Septic Shock secondary to pneumonia Acute metabolic encephalopathy Hypotension, resolved DANNA, resolved Cholelithiasis s/p recent neck surgery (1 month ago) Hx of asthma Septic Shock secondary to pneumonia Acute metabolic encephalopathy Hypotension Recent oral thrush (2 weeks ago) presents with generalized weakness, flulike symptoms, cough, +possible subjective unwitnessed syncopal episode. Multiple sick contacts with flulike symptoms. Covid/Flu negative. Recent oral thrush per patient. She reports being prescribed augmentin, nyast atin [id number], prednisone ~2 weeks ago (11/16) Patient minimally responsive in ED. BP initially 71/39 in ED. BP improved with IVF, levophed drip Off levo since 11/29 evening CXR (11/29): Mild right costophrenic angle blunting which could relate to atelectasis or trace effusion. COPD CT head negative for acute findings continue empiric rocephin / azithromycin (11/29-) Follow blood cultures. UA with trace yeast. denies UTI symptoms wean oxygen as tolerated. guillaume padilla mroales, central line 12/01 DANNA, resolved, secondary to dehydration creatinine 1.53 on admission DANNA quickly resolved with IV hydration Cholelithiasis Abdominal u/s (11/29): gallstone near the neck. No sonographic findings to suggest acute cholecystitis VTE: Lovenox Code: Full Dispo: Home, ~2 days downgrade to floor today Time Spent Managing Pts Care (In Minutes): 55
--- NOTE | 2024-12-01 16:52 | EKG ---
Test Date: 2024-11-29 Test Time: 15:26:20 Sailboat Captain: SILVA MEASUREMENT RESULTS: Intervals: Rate: 50 WA: 224 QRSD: 84 QT: 590 QTc: 537 Allen: P: 47 WA: 224 QRS: 48 T: 90 INTERPRETIVE STATEMENTS: Sinus bradycardia with 1st degree AV block Nonspecific ST and T wave abnormality Prolonged QT Abnormal ECG No previous ECG available for comparison Electronically Signed On 12-01-24 16:46:11 [employer] by Juan Guidry
[2024-12-02 06:01] LABS: Absolute Eosinophils 0.1 K/uL (0-0.5); Absolute Lymphocytes (CBC) 2.1 K/uL (0.7-4.9); Absolute Monocytes 0.6 K/uL (0.1-1.3); Absolute Neutrophil 5.2 K/uL (1.8-8.0); Basophils % 0.1 % (0-1.3); Eosinophils % 1.1 % (0-4.4); Hematocrit 31.3 % (36.0-45.0); Hemoglobin 10.2 g/dL (12.0-15.0); Lymphocytes % 25.9 % (15.3-44.8); MCH 27.8 pg (27.0-35.0); MCHC 32.6 g/dL (32.0-36.0); MCV 85.3 fL (80-100); MPV 6.9 fL (7.6-11.3); Monocytes % 8.1 % (3.3-12.3); Neutrophils % 64.8 % (41.7-73.7); Nucleated Red Blood Cells % 0.1 % (0-0); Platelets 259 thou/uL (152-406); RBC Red Blood Cell Count 3.67 M/uL (3.86-4.86); Red Cell Distribution Width 15.1 % (12.1-15.2)
[2024-12-02 06:17] LABS: Anion Gap 8.6 mEq/L (5.0-15.0); Magnesium 1.8 mg/dL (1.6-2.4); Potassium 3.6 mEq/L (3.5-5.1)
--- NOTE | 2024-12-02 08:00 | P.PN ---
Date of Service: 12/02/24 Subjective: feeling better overall ambulating, used BSC breathing okay, continues with wheezing afebrile ROS: 10 point ROS as noted above, otherwise negative Physical Exam: GEN: Alert, oriented, fatigued appearing CV: Regular rate and rhythm, no edema HEENT: erythematous posterior pharynx, no clear plaques Pulm: Nonlabored respirations on 2L NC, diminished, inspiratory wheeze ABD: soft, nontender, nondistended Neuro: Normal speech, normal affect Problem List: Septic Shock secondary to pneumonia Acute metabolic encephalopathy, improved Hypotension, resolved Recent oral thrush (2 weeks ago) DANNA, resolved, secondary to dehydration Cholelithiasis s/p recent neck surgery (1 month ago) Hx of asthma Septic Shock secondary to pneumonia Acute metabolic encephalopathy, improved Hypotension, resolved Recent oral thrush (2 weeks ago) presents with generalized weakness, flulike symptoms, cough, +possible subjective unwitnessed syncopal episode. Multiple sick contacts with flulike symptoms. Covid/Flu negative. Recent oral thrush per patient. She reports being prescribed augmentin, nyastatin [id number], prednisone ~2 weeks ago (11/16) CXR (11/29): Mild right costophrenic angle blunting which could relate to atelectasis or trace effusion. COPD CT head negative for acute findings. Patient minimally responsive in ED. BP low at the time 71/39. BP stable. Off levo since 11/29 evening. continue empiric rocephin / azithromycin (11/29-) Follow blood cultures. UA with trace yeast. denies UTI symptoms wean oxygen as tolerated. duonebs. [facility] line dc'd 12/01. DANNA, resolved, secondary to dehydration creatinine 1.53 on admission DANNA quickly resolved with IV hydration Cholelithiasis Abdominal u/s (11/29): gallstone near the neck. No sonographic findings to suggest acute cholecystitis VTE: Lovenox Code: Full Dispo: Home, Possibly later this afternoon vs tomorrow Breathing improves, off oxygen. BP stable. Time Spent Managing Pts Care (In Minutes): 55
[2024-12-02] MEDS: POTASSIUM CL SA 10 MEQ TAB PO ONE (08:07)
[2024-12-02 08:55] VITALS: BP 127/72; TEMP 97.6
[2024-12-02 12:06] VITALS: O2SAT 94
--- NOTE | 2024-12-03 06:34 | P.DS ---
Admission Date: 11/29/24 Discharge Date: 12/02/24 Disposition: ROUTINE DISCHARGE Discharge Condition: GOOD Reason for Admission: generalized weakness Brief History of Present Illness: 73 yo F, PMH: hypertension, hyperlipidemia, GERD, Asthma Patient presented to the ED with flulike symptoms. Patient is a historian hence most of the history is obtained from chart review and also talking to the ER physician and family member at the bedside . Apparently multiple contacts lately with flulike symptoms and other people for patient. Patient reports 2 days of feeling generalized weakness and malaise, cough.Patient was minimally responsive but awake. No trauma or fall. Patient was assessed in the ER and was admitted for further management . . Patient was found to be hypotensive and was started on Levophed and was admitted to the ICU Hospital Course: Problem List: Septic Shock secondary to pneumonia Acute metabolic encephalopathy, improved Hypotension, resolved Recent oral thrush (2 weeks ago) DANNA, resolved, secondary to dehydration Cholelithiasis s/p recent neck surgery (1 month ago) Hx of asthma Physician discharge instructions: Patient presented with generalized weakness, flulike symptoms, cough. Patient was noted to be hypotensive in ED (71/39). She was started on a levophed drip, given IV fluids, and blood pressure quickly improved within a few hours (< 8 hours). Levophed drip was discontinued and patients BP remained stable in 120-150s for the rest of her hospitalization. CT head was negative for any acute findings. Chest xray with mild right costophrenic angle blunting which could relate to atelectasis or trace effusion, also noted COPD. She reported being in contact with multiple sick family members with similar flulike symptoms. Covid and Flu screening were negative in ED. Patient was also started on empiric IV Azithromycin and Rocephin to cover suspected bacterial pneumonia given her presentation and risk factors. On discharge, to complete 5 more days of oral antibiotic - cefdinir 300mg twice daily Patient was feeling better, afebrile > 48 hours, leukocytosis resolved, breathing more comfortably on room air, and was deemed stable for discharge. Suspect viral respiratory illness exacerbating COPD and dehydration. She also reported recurrent thrush, and was noted to have a sore throat with erythema. She was treated with nystatin swish/swallow, which she reported having at home, and will continue this on discharge. Medications: Cefdinir 300mg twice daily. Follow up: PCP ~5 days Please call to schedule / confirm appointments Physical Exam: GEN: Alert, oriented, NAD CV: Regular rate and rhythm, no edema Pulm: Nonlabored respirations on room air, clear bilaterally ABD: soft, nontender, nondistended Neuro: Normal speech, normal affect Vital Signs/Physical Exam: Temp Pulse Resp BP Pulse Ox 97.6 F 70 16 127/72 95 12/02/24 08:00 12/02/24 08:00 12/02/24 08:00 12/02/24 08:00 12/02/24 08:00 Laboratory Data at Discharge: WBC 8.00 thou/uL (4.3-10.9) 12/02/24 05:27 Hgb 10.2 g/dL (12.0-15.0) L 12/02/24 05:27 Hct 31.3 % (36.0-45.0) L 12/02/24 05:27 Plt Count 259 thou/uL (152-406) 12/02/24 05:27 PT 12.4 SECONDS (10.0-13.0) 11/29/24 15:26 INR 1.09 11/29/24 15:26 APTT 28.1 SECONDS (24.3-36.9) 11/29/24 15:26 Sodium 134 mEq/L (136-145) L 12/02/24 05:27 Potassium 3.6 mEq/L (3.5-5.1) 12/02/24 05:27 BUN 10 mg/dL (7-18) 12/02/24 05:27 Creatinine 0.56 mg/dL (0.55-1.02) 12/02/24 05:27 Glucose 90 mg/dL (74-106) 12/02/24 05:27 Phosphorus 2.6 mg/dL (2.5-4.9) 12/02/24 05:27 Magnesium 1.8 mg/dL (1.6-2.4) 12/02/24 05:27 Total Bilirubin 0.3 mg/dL (0.2-1.0) 12/01/24 05:10 AST 43 U/L (15-37) H 12/01/24 05:10 ALT 49 U/L (13-56) 12/01/24 05:10 Alkaline Phosphatase 180 U/L (45-117) H D 12/01/24 05:10 Home Medications: Acetaminophen 325 mg PO PRN 11/29/24 Aspirin/Acetaminophen/Caffeine [Excedrin Migraine Caplet] 1 each PO PRN 11/29/24 Budesonide [Budesonide EC] 3 mg PO DAILY 11/29/24 Cholecalciferol (Vitamin D3) [Vitamin D3] 1,000 unit PO DAILY 11/29/24 Clotrimazole/Betamethasone Dip [Clotrimazole-Betamethasone Crm] See Rx Instructions .ROUTE .COMPLEX 11/29/24 Dextran 70/Hypromellose [Artificial Tears Drops] See Rx Instructions .ROUTE .COMPLEX 11/29/24 Doxylamine Succinate [Nighttime Sleep Aid] 25 mg PO PRN 11/29/24 Estradiol [Estrace] 42.5 gm VG PRN 11/29/24 Gabapentin 600 mg PO BID 11/29/24 Hydrocodone 5/APAP 325 [Terrell 5/325*] 5 - 325 mg PO Q6HR 11/29/24 guaiFENesin [Guaifenesin ER] 1,200 mg PO DAILY 11/29/24 Montelukast [Singulair*] 10 mg PO DAILY 11/30/24 Nortriptyline HCl [Pamelor*] 30 mg PO BEDTIME 11/30/24 Nystatin 500,000 unit PO QID 11/30/24 Omeprazole 20 mg PO DAILY 11/30/24 Sumatriptan [Imitrex*] 100 mg PO PRN PRN 11/30/24 Triamcinolone 0.1% Oint [Kenalog 0.1% Ointment*] See Rx Instructions .ROUTE .COMPLEX PRN 11/30/24 Umeclidinium Brm/Vilanterol Tr [Anoro Ellipta 62.5-25 Mcg INH] 1 each IH DAILY 11/30/24 Valsartan [Diovan] 80 mg PO DAILY 11/30/24 nadoloL [Nadolol] 20 mg PO BID 11/30/24 Cefdinir [Cefdinir*] 300 mg PO BID 5 Days #10 cap 12/02/24 New Medications: Cefdinir [Cefdinir*] 300 mg PO BID 5 Days #10 cap Physician Discharge Instructions: Physician discharge instructions: Patient presented with generalized weakness, flulike symptoms, cough. Patient was noted to be hypotensive in ED (71/39). She was started on a levophed drip, given IV fluids, and blood pressure quickly improved within a few hours (< 8 hours). Levophed drip was discontinued and patients BP remained stable in 120-150s for the rest of her hospitalization. CT head was negative for any acute findings. Chest xray with mild right costophrenic angle blunting which could relate to atelectasis or trace effusion, also noted COPD. She reported being in contact with multiple sick family members with similar flulike symptoms. Covid and Flu screening were negative in ED. Patient was also started on empiric IV Azithromycin and Rocephin to cover yola pected bacterial pneumonia given her presentation and risk factors. On discharge, to complete 5 more days of oral antibiotic - cefdinir 300mg twice daily Patient was feeling better, afebrile > 48 hours, leukocytosis resolved, breathing more comfortably on room air, and was deemed stable for discharge. Suspect viral respiratory illness exacerbating COPD and dehydration. She also reported recurrent thrush, and was noted to have a sore throat with erythema. She was treated with nystatin swish/swallow, which she reported having at home, and will continue this on discharge. Medications: Cefdinir 300mg twice daily. Follow up: PCP ~5 days Please call to schedule / confirm appointments Followup: NONE,NONE [Primary Care Provider] - Time spent managing pt's care (in minutes): 45
== END 2024-12-02 16:00 | disposition home or self-care (01) | DRG 871 ==
LOC: ER 14:39 → 3RD-ICU 18:34
PROVIDERS: ADMIT Family Medicine; ATTEND Hospitalist
PROC: 02HV33Z Insertion of Infusion Device into Superior Vena Cava, Percutaneous Approach (ICD-10-PCS; principal; 2024-11-29)
PROC: 3E043XZ Introduction of Vasopressor into Central Vein, Percutaneous Approach (ICD-10-PCS; 2024-11-29)
DX: A41.9 Sepsis, unspecified organism (principal); G93.41 Metabolic encephalopathy; R65.21 Severe sepsis with septic shock; J18.9 Pneumonia, unspecified organism; N17.9 Acute kidney failure, unspecified; E87.1 Hypo-osmolality and hyponatremia; B37.0 Candidal stomatitis; J44.0 Chronic obstructive pulmonary disease with (acute) lower respiratory infection; E86.0 Dehydration; D64.9 Anemia, unspecified; I10 Essential (primary) hypertension; E78.00 Pure hypercholesterolemia, unspecified; K21.9 Gastro-esophageal reflux disease without esophagitis; K80.20 Calculus of gallbladder without cholecystitis without obstruction; Z11.52 Encounter for screening for COVID-19; Z79.899 Other long term (current) drug therapy
CPT/HCPCS: 36415; 36556; 51702; 70450; 71045; 76705; 80048; 80053; 80076; 81001; 83605; 83735; 84100; 84484; 85025; 85610; 85730; 87040; 87428; 93005; 94640; 94760; 99291; J0612; J0696; J1650; J3475; J7040; J7050; J7613; J7644; Q0163